=== PATIENT | female | born 1945 | race Two or more races ===

== ENCOUNTER 2018-10-03 08:52 | Outpatient (CLI) | payer OTHER ==
[~2018-10-03 08:52] MED LIST: ANTIVERT PO; AVAPRO150 MG PO; CEFADROXIL500 MG PO; COUMADIN2 MG PO; CYMBALTA30 MG PO; HYDROCHLOROTH12.5 M1 PO; METFORMIN HCL500 M2 PO; PERCOCET 5/3251 TAB PO; PRADAXA150 MG PO; PROTONIX40 MG PO; SYNTHROID75 MCG PO; TESSALON PERLE100 M1 PO
== END 2018-10-03 08:58 | disposition home or self-care (01) ==
LOC: RAD 08:52
DX: E11.69 Type 2 diabetes mellitus with other specified complication (principal); I10 Essential (primary) hypertension

== ENCOUNTER 2018-10-07 07:15 | Inpatient (IN) | payer OTHER ==
[~2018-10-07] VITALS: Ht 160 cm; Wt 113.4 kg
[2018-10-09] MEDS ORDERED: AVAPRO150 MG PO (12:09)
[2018-10-09] MEDS ORDERED: SYNTHROID175 MCG PO (12:09)
[2018-10-09] MEDS ORDERED: CYMBALTA30 MG PO (12:09)
[2018-10-09] MEDS ORDERED: PRADAXA150 MG PO (12:10)
[2018-10-11] MEDS ORDERED: ELIQUIS2.5 MG PO (08:50)
[2018-10-11] MEDS ORDERED: CIPRO500 MG PO (08:50)
[2018-10-11] MEDS ORDERED: PERCOCET 5-3251 EACH PO (08:50)
[2018-10-11] MEDS ORDERED: ELIQUIS5 MG PO (08:52)
== END 2018-10-11 14:10 | DRG 470 ==
LOC: SURH 10-08 07:15 → O/R 10-08 07:21 → SURH 10-08 13:53
PROVIDERS: Orthopaedic Surgery
PROC: 0SND0ZZ Release Left Knee Joint, Open Approach (ICD-10-PCS; 2018-10-08)
PROC: 0SRD0JZ Replacement of Left Knee Joint with Synthetic Substitute, Open Approach (ICD-10-PCS; principal; 2018-10-08 18:15)
DX: M17.12 Unilateral primary osteoarthritis, left knee (principal); D62 Acute posthemorrhagic anemia; M81.0 Age-related osteoporosis without current pathological fracture; E66.01 Morbid (severe) obesity due to excess calories; I48.0 Paroxysmal atrial fibrillation; I10 Essential (primary) hypertension; E03.8 Other specified hypothyroidism

== ENCOUNTER 2021-02-02 09:54 | Emergency (ER) | payer OTHER ==
[~2021-02-02] VITALS: Ht 160 cm; Wt 108.9 kg
[~2021-02-02 09:54] MED LIST changes: +CIPRO500 MG PO; +ELIQUIS2.5 MG PO; +ELIQUIS5 MG PO; +PERCOCET 5-3251 EACH PO; +SYNTHROID175 MCG PO
[2021-02-02] MEDS ORDERED: METFORMIN HCL1000 M3 (10:03)
[2021-02-02] MEDS ORDERED: SIMVASTATIN5 MG (10:03)
== END 2021-02-02 16:29 | disposition home or self-care (01) ==
LOC: ER 09:54
DX: S93.492A Sprain of other ligament of left ankle, initial encounter (principal); S80.02XA Contusion of left knee, initial encounter; S80.01XA Contusion of right knee, initial encounter; S70.02XA Contusion of left hip, initial encounter; W01.198A Fall on same level from slipping, tripping and stumbling with subsequent striking against other object, initial encounter; Y93.E8 Activity, other personal hygiene; Y92.012 Bathroom of single-family (private) house as the place of occurrence of the external cause; Y99.8 Other external cause status